=== PATIENT | female | born 2000 | race Caucasian/White ===

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

== ENCOUNTER 2019-10-25 18:19 | Emergency (ER) | payer SELFPAY ==
[2019-10-25] MEDS ORDERED: SUMAtriptan Succinate 6 MG/0.5 ML VIAL ONE (19:09)
[2019-10-25] MEDS ORDERED: Dexamethasone 4 MG TAB ONE (19:10)
[2019-10-25] MEDS ORDERED: Cyclobenzaprine 10 MG TAB ONE (20:46)
== END 2019-10-25 20:53 | disposition home or self-care (01) ==
LOC: MADERS 18:19
DX: R51 Headache (principal); M54.2 Cervicalgia; R11.0 Nausea; R42 Dizziness and giddiness; F17.290 Nicotine dependence, other tobacco product, uncomplicated
CPT/HCPCS: 96372; 99283; J3030; J8540